=== PATIENT | female | born 1985 | race Asian ===

== ENCOUNTER 2020-04-18 11:55 | Emergency (ER) | payer BC ==
[2020-04-18] MEDS ORDERED: EPINEPHRINE INJ/PF 1 MG/1 ML AMPULE ONE (12:05)
[2020-04-18] MEDS ORDERED: EPINEPHRINE INJ/PF 1 MG/1 ML AMPULE IM ONE (12:10)
[2020-04-18] MEDS ORDERED: DEXAMETHASONE SOD PHOS INJ 10 MG/1 ML VIAL IV ONE (12:10)
[2020-04-18] MEDS ORDERED: FAMOTIDINE INJ/PF 20 MG/2 ML SDV IV ONE (12:11)
[2020-04-18] MEDS ORDERED: DIPHENHYDRAMINE HCL 50 MG/ML VIAL IV ONE (12:11)
--- NOTE | 2020-04-18 12:14 | ER Document Report ---
ED General - General Chief Complaint: Rash Stated Complaint: RASH,DIZZY,DIFFICULTY BREATHING Time Seen by Provider: 04/18/20 12:09 - HPI Notes: Patient is a 31-year-old female who presents to the emergency department for evaluation after an ant bite. She was bitten by fire ant on the left foot just prior to arrival. Immediately she started feeling dizzy, itching all over. She started feeling itching and a strange sensation in her throat. This is the second time she has been bitten. She states the first time she had some itching but it is much more severe this time. She is never had a full-blown anaphylactic reaction. She denies any difficulty breathing, states she feels like the symptoms in her throat have improved somewhat already. She has not yet taken any medications to help. - Related Data Allergies/Adverse Reactions: No Known Allergies Allergy (Unverified 04/18/20 12:12) Home Medications: None Past Medical History - General Information source: Patient - Social History Smoking Status: Never Smoker Drug Abuse: None Family History: None - Medical History Medical History: Negative Surgical Hx: Negative Review of Systems - Review of Systems Constitutional: See HPI EENT: See HPI Skin: See HPI -: Yes All other systems reviewed and negative Physical Exam - Vital signs Vitals: Resp BP Pulse Ox 24 H 96/66 L 95 04/18/20 12:08 04/18/20 12:08 04/18/20 12:08 - Notes Notes: This is a 31-year-old female who appears her stated age. She is diaphoretic, appears weak, but is able to be of some assistance getting herself into the bed from a wheelchair. Vital signs reviewed, please refer to chart. Head is normocephalic, atraumatic. Pupils equal round, reactive to light. Oral mucosa is moist. I do not appreciate any edema of the lips, tongue, posterior pharynx. Neck is supple without meningismus. Heart is regular rate and rhythm. Lungs are clear to auscultation bilaterally. Abdomen is soft, nontender, normoactive bowel sounds throughout. Extremities without cyanosis, clubbing. Posterior calves are nontender. Peripheral pulses are equal. Skin is warm and moist. She has scattered urticaria, particularly about the trunk, left foot, left lower extremity. Patient is awake, alert, neurological exam is nonfocal. Course - Re-evaluation Re-evalutation: 04/18/20 12:14 Patient presents to the emergency department for evaluation. She is mostly system involvement following a fire ant bite. She is treated with IM epinephrine, as well as Decadron, Pepcid, Benadryl. She is placed on a monitoring tech. We will continue to monitor. 04/18/20 15:42 Patient symptoms have entirely resolved and not returned. She is stable. She is given instructions on anaphylaxis, will be given a prescription for an epinephrine pen. She is given instructions on what to do if this happens again. She voiced understanding and the patient will be discharged. She is to return to the ED with worsening or new concerning symptoms of any sort. - Vital Signs Vital signs: Temp Pulse Resp BP Pulse Ox 98.5 F 19 105/65 99 04/18/20 12:46 04/18/20 13:00 04/18/20 13:00 04/18/20 13:00 Discharge - Discharge Clinical Impression: Anaphylaxis due to insect venom Condition: Stable Disposition: HOME, SELF-CARE Instructions: Anaphylaxis Kit ([facility]), Acute Allergic Reaction ([facility]) Additional Instructions: Benadryl as needed for itching. Fill prescription for epinephrine pen. If you need to use it in the future, please use it then come directly to the hospital for further evaluation. Follow-up with your primary care provider next week. Return to the emergency department for worsening or new concerning symptoms of any sort.
[2020-04-18 15:52] VITALS: BP 106/70
== END 2020-04-18 15:58 | disposition home or self-care (01) ==
LOC: EDBD 11:55 → ER 11:55
DX: T63.421A Toxic effect of venom of ants, accidental (unintentional), initial encounter (principal); T78.2XXA Anaphylactic shock, unspecified, initial encounter; R42 Dizziness and giddiness; R06.00 Dyspnea, unspecified
CPT/HCPCS: 99281; 96372; 96375; 96365; J1200; J0171; S0028; J1100